=== PATIENT | male | born 1960 | race Caucasian/White ===

== ENCOUNTER 2019-11-29 12:02 | Inpatient (IN) | payer OTHER ==
[~2019-11-29] VITALS: Ht 198.1 cm; Wt 138.0 kg
--- NOTE | 2019-11-29 12:10 | NUR ---
Patient BIB rescue ambulance from dialysis center for c/o of chills and SOB x 3 weeks. Patient placed in Bed 1B, attached to bedside monitor. Patient noted to have goosebumps on his skin and c/o of shortness of breath. Pt states he smoked a pack of cigarettes within one week and developed a cough. Seen and examined by Dr. Garcia.
[2019-11-29 12:57] LABS: BASOPHILS % (AUTO) 0.4 % (0.0-2.0); EOSINOPHILS # (AUTO) 0.2 K/uL (0.0-0.7); EOSINOPHILS % (AUTO) 1.8 % (0.0-7.0); HEMATOCRIT 27.2 % (36.7-47.1); HEMOGLOBIN 9.5 g/dL (12.5-16.3); LYMPHOCYTES # (AUTO) 1.5 K/uL (20.0-40.0); LYMPHOCYTES % (AUTO) 13.7 % (20.5-51.5); MEAN CORPUSCULAR HEMOGLOBIN 31.7 uug (23.8-33.4); MEAN CORPUSCULAR HGB CONC 35 g/dL (32.5-36.3); MEAN CORPUSCULAR VOLUME 90.3 fL (73.0-96.2); MONOCYTES # (AUTO) 0.5 K/uL (2.0-10.0); MONOCYTES % (AUTO) 4.7 % (0.0-11.0); NEUTROPHILS # (AUTO) 8.5 K/uL (1.8-8.9); NEUTROPHILS % (AUTO) 79.4 % (38.5-71.5); PLATELET COUNT (AUTO) 187 K/uL (152-348); RED BLOOD CELL COUNT(AUTO) 3.01 MIL/uL (4.06-5.63); WHITE BLOOD COUNT (AUTO) 10.7 K/uL (3.6-10.2)
[2019-11-29 13:13] LABS: BILIRUBIN,DIRECT 0.1 mg/dL (0.0-0.2); BILIRUBIN,TOTAL 0.7 mg/dL (0.2-1.0); CREATININE 5.3 mg/dL (0.6-1.3); TOTAL PROTEIN, SERUM 8.3 g/dL (6.4-8.2)
[2019-11-29] MEDS ORDERED: GABA-532 PO (13:19)
[2019-11-29] MEDS ORDERED: METO50TA16 PO (13:19)
[2019-11-29] MEDS ORDERED: ATOR40TA PO (13:19)
[2019-11-29] MEDS ORDERED: LOSA50TA39 PO (13:19)
[2019-11-29] MEDS ORDERED: INSU100V39 SQ (13:19)
[2019-11-29] MEDS ORDERED: INSU100V7 SQ (13:19)
[2019-11-29] MEDS ORDERED: APIX5TAB PO (13:19)
[2019-11-29] MEDS ORDERED: CALC667C6 PO (13:19)
[2019-11-29] MEDS ORDERED: ISOS60TA4 PO (13:19)
[2019-11-29] MEDS ORDERED: DOCU-141 PO (13:19)
[2019-11-29] MEDS ORDERED: hydrALAZINE HCL 25 MG TABLET ONE (13:44)
[2019-11-29] MEDS ORDERED: hydrALAZINE HCL 25 MG TABLET PO ONE (13:45)
--- NOTE | 2019-11-29 15:07 | NUR ---
Spoke with Sydnie in 3rd floor states they do not have a room for PUI
--- NOTE | 2019-11-29 17:40 | NUR ---
attempted to give report to floor. Per Kamron, nurse madison is with a patient and she will call ER for report.
--- NOTE | 2019-11-29 18:21 | NUR ---
SBAR report given to Seun WINTER
--- NOTE | 2019-11-29 19:00 | NUR ---
RECEIVED PT AWAKE, ALERT AND ORIENTEDX4. UNDER THE CARE OF DR. LUNDY. DX;CHF/ESRD PT IN NO ACUTE DISTRESS. IV INTACT. ADMISSION PROCESS AND CARE PLAN INITIATED. RESIDENTIAL ASSESSMENT DONE. PT OBSERVED TO HAVE A DRESSING ON HIS RIGHT AND LEFT FEET. LEFT ARM HAS AV SHUNT. SAFETY AND COMFORT PROVIDED. WILL CONTINUE TO MONITOR.
[2019-11-29 19:08] VITALS: BP 156/78
[2019-11-29] MEDS ORDERED: DEXTROSE 50% 50 ML DISP.SYRIN IV PRN (19:30)
[2019-11-29] MEDS ORDERED: ONDANSETRON 4 MG/2 ML VIAL IV PRN (19:30)
[2019-11-29] MEDS ORDERED: ACETAMINOPHEN 325 MG TABLET PO PRN (19:30)
[2019-11-29] MEDS ORDERED: MORPHINE SULFATE 2 MG/1 ML DISP.SYRIN IV PRN (19:30)
[2019-11-29 20:06] VITALS: BP 150/72
[2019-11-29] MEDS: GABAPENTIN 300 MG CAPSULE PO SCH (20:17)
[2019-11-29] MEDS: ATORVASTATIN 40 MG TABLET PO SCH (20:17)
[2019-11-29] MEDS: LOSARTAN POTASSIUM 50 MG TABLET PO SCH (20:18)
[2019-11-29] MEDS: BLOOD SUGAR DIAGNOSTIC 1 EACH STRIP VI SCH (21:35)
[2019-11-29] MEDS: INSULIN REGULAR, HUMAN 300 UNIT/3 ML VIAL SQ PRN (21:36)
[2019-11-29] MEDS: INSULIN GLARGINE,HUM 300 UNITS/3 ML CARTRIDGE SQ SCH (21:37)
[2019-11-30 00:22] VITALS: BP 159/88
[2019-11-30 04:00] VITALS: BP 158/78
[2019-11-30] MEDS: PANTOPRAZOLE SODIUM 40 MG TABLET.DR PO SCH (06:17)
--- NOTE | 2019-11-30 06:18 | NUR ---
PT SLEPT INTERMITTENTLY. PT IN NO ACUTE DISTRESS. IV INTACT. PRESCRIBED MEDICATION GIVEN AND PT TOLERATED IT WELL. DRESSING CHANGED FOR HIS BILATERAL FOOT. SAFETY AND COMFORT PROVIDED. ALL NEEDS ARE MET. WILL ENDORSE TO INCOMING NURSE FOR CONTINUITY OF CARE.
[2019-11-30] MEDS: BLOOD SUGAR DIAGNOSTIC 1 EACH STRIP VI SCH ×4 (06:39→21:36)
[2019-11-30 07:13] LABS: BASOPHILS % (AUTO) 0.7 % (0.0-2.0); EOSINOPHILS # (AUTO) 0.3 K/uL (0.0-0.7); EOSINOPHILS % (AUTO) 4.6 % (0.0-7.0); HEMATOCRIT 24.1 % (36.7-47.1); HEMOGLOBIN 8.3 g/dL (12.5-16.3); LYMPHOCYTES # (AUTO) 1.4 K/uL (20.0-40.0); LYMPHOCYTES % (AUTO) 20.6 % (20.5-51.5); MEAN CORPUSCULAR HEMOGLOBIN 31.2 uug (23.8-33.4); MEAN CORPUSCULAR HGB CONC 35 g/dL (32.5-36.3); MEAN CORPUSCULAR VOLUME 90.6 fL (73.0-96.2); MONOCYTES # (AUTO) 0.4 K/uL (2.0-10.0); MONOCYTES % (AUTO) 6.1 % (0.0-11.0); NEUTROPHILS # (AUTO) 4.7 K/uL (1.8-8.9); PLATELET COUNT (AUTO) 156 K/uL (152-348); RED BLOOD CELL COUNT(AUTO) 2.66 MIL/uL (4.06-5.63); WHITE BLOOD COUNT (AUTO) 6.9 K/uL (3.6-10.2)
[2019-11-30 07:23] LABS: BILIRUBIN,TOTAL 0.6 mg/dL (0.2-1.0); CREATININE 7.3 mg/dL (0.6-1.3); MAGNESIUM 2.1 mg/dL (1.8-2.4); PHOSPHOROUS 5.2 mg/dL (2.5-4.9); POTASSIUM 4.5 mmol/L (3.5-5.1); TOTAL PROTEIN, SERUM 7.3 g/dL (6.4-8.2)
[2019-11-30 07:38] LABS: THYROID STIMULATING HORMONE 1.545 mIU/mL (0.358-3.740)
[2019-11-30] MEDS: DOCUSATE SODIUM 100 MG CAPSULE PO SCH (08:25)
[2019-11-30] MEDS: ISOSORBIDE MONONITRATE 60 MG TAB.SR.24H PO SCH (08:25)
[2019-11-30] MEDS: LOSARTAN POTASSIUM 50 MG TABLET PO SCH ×2 (08:25→21:30)
[2019-11-30] MEDS: CALCIUM ACETATE 667 MG CAPSULE PO SCH ×3 (08:25→16:35)
[2019-11-30] MEDS: METOPROLOL TARTRATE 50 MG TABLET PO SCH ×2 (08:26→16:35)
[2019-11-30 09:33] LABS: *BILIRUBIN,URIN NEGATIVE (NEGATIVE); *CLARITY,URINE SLIGHTLY CLOUDY (CLEAR); *COLOR,URINE YELLOW (YELLOW); *KETONES,URINE NEGATIVE (NEGATIVE); *UROBILINOGEN,URINE 0.2 E.U./dl (NORMAL); LEUKOCYTE ESTERASE ,URINE TRACE (NEGATIVE); NITRITE, URINE NEGATIVE (NEGATIVE); PH,URINE 8.5 (5.0-8.0); UGLUCOSE TRACE (NEGATIVE)
[2019-11-30 09:48] LABS: *BLOOD, URINE TRACE (NEGATIVE)
[2019-11-30 10:39] VITALS: BP 175/85
[2019-11-30] MEDS: INSULIN REGULAR, HUMAN 300 UNIT/3 ML VIAL SQ PRN ×3 (11:21→21:38)
--- NOTE | 2019-11-30 12:08 | NUR ---
WOUND CARE CONSULT: REVIEWED CHART, NURSING DOCUMENTATION AND PHOTOS WHICH INDICATE BILATERAL FOOT WOUNDS, PRESENT ON ADMISSION. RECOMMEND DPM CONSULT. DR RAZA NOTIFIED OF CONSULT REQUEST. CURRENT EDGARDO SCORE IS 21. MD IN AGREEMENT WITH PLAN OF CARE.
--- NOTE | 2019-11-30 12:52 | NUR ---
Received patient awake in bed in stable condition. no SOB noted. Cough noted during rounds. no complaint of pain/discomfort noted. Patient seen by wound nurse with order of DPM consult for right heel and left big toe wound. Continue skin care provided. Patient continue blood sugar monitoring with sliding scale protocol. Patient done with scheduled dialysis with 3600 liters consume. not in distress. will continue monitor
[2019-11-30 15:49] VITALS: BP 151/71
[2019-11-30] MEDS: SODIUM HYPOCHLORITE 0.125% (QUARTER STRENGTH) 473 ML BOTTLE TP SCH (17:26)
[2019-11-30] MEDS: KETOCONAZOLE 2% CREAM 30 GM TUBE TP SCH (17:27)
[2019-11-30] MEDS: SILVER SULFADIAZINE 1% CREAM 50 GM TP SCH (17:27)
[2019-11-30 18:10] LABS: BACTERIA,URINE FEW /HPF (NONE SEEN); RBC,URINE 0-3 /HPF (0-3); SQUAMOUS EPITHELIAL CELL,UR FEW /HPF (NONE SEEN); WBC,URINE 0-3 /HPF (0-3)
--- NOTE | 2019-11-30 18:11 | NUR ---
Patient urine sent to lab, awaiting for culture result. Patient seen and examined by Cartridge Gauger with order cleanse with daikin and applied silvadene to left big toe and right foot heel, covered with gauze and surgical tape. Awaiting for covid test result. will continue monitor
[2019-11-30] MEDS ORDERED: VANCOMYCIN IV 1,250 MG in IV DEXTROSE 5% 250 ML IV ONE (20:00)
[2019-11-30] MEDS ORDERED: VANCOMYCIN IV 1,000 MG in IV DEXTROSE 5% 250 ML IV ONE (20:00)
[2019-11-30 21:28] VITALS: BP 170/82
[2019-11-30] MEDS: ATORVASTATIN 40 MG TABLET PO SCH (21:30)
[2019-11-30] MEDS: GABAPENTIN 300 MG CAPSULE PO SCH (21:30)
[2019-11-30] MEDS: hydrALAZINE HCL 25 MG TABLET PO PRN (21:33)
[2019-11-30] MEDS: INSULIN GLARGINE,HUM 300 UNITS/3 ML CARTRIDGE SQ SCH (21:37)
--- NOTE | 2019-11-30 22:00 | NUR ---
Received patient awake in bed in stable condition talking on the phone. No distress noted, no SOB noted Denies any pain at this time. Accucheck 156 covered with sliding scale. All due medication administered. Eleevated BP 170/82, administered PRN hydralazine. will continue monitor
--- NOTE | 2019-11-30 22:30 | NUR ---
IV RAC20G occluded, removed and started IV R forarm 22G, intact. One time order to run vanco, administered no adverse affects noted.
[2019-12-01] VITALS (8 sets, daily range): BP systolic 147–181; BP diastolic 70–89
[2019-12-01] MEDS ORDERED: CLONIDINE HCL 0.1 MG TABLET PO ONE (00:30)
--- NOTE | 2019-12-01 00:30 | NUR ---
BP 181/83 asymptomatic. callisthenics instructor Doctor Erica Hancock made aware, new order for clonidine 0.1mmgPO x1, administered, will continue to monitor.
--- NOTE | 2019-12-01 02:18 | NUR ---
BP remains elevated 177/81, asymptomatic Addendum: 12/01/19 at 0220 by JOSEFINA ROSE RN RN [id number]
[2019-12-01] MEDS: PANTOPRAZOLE SODIUM 40 MG TABLET.DR PO SCH (06:49)
[2019-12-01] MEDS: BLOOD SUGAR DIAGNOSTIC 1 EACH STRIP VI SCH ×4 (06:51→20:25)
[2019-12-01 06:57] LABS: BASOPHILS % (AUTO) 0.6 % (0.0-2.0); EOSINOPHILS # (AUTO) 0.3 K/uL (0.0-0.7); EOSINOPHILS % (AUTO) 5.8 % (0.0-7.0); HEMATOCRIT 23.3 % (36.7-47.1); HEMOGLOBIN 8.1 g/dL (12.5-16.3); LYMPHOCYTES # (AUTO) 1.4 K/uL (20.0-40.0); LYMPHOCYTES % (AUTO) 22.6 % (20.5-51.5); MEAN CORPUSCULAR HEMOGLOBIN 31.4 uug (23.8-33.4); MEAN CORPUSCULAR HGB CONC 35 g/dL (32.5-36.3); MEAN CORPUSCULAR VOLUME 90.8 fL (73.0-96.2); MONOCYTES # (AUTO) 0.5 K/uL (2.0-10.0); MONOCYTES % (AUTO) 8.4 % (0.0-11.0); NEUTROPHILS # (AUTO) 3.8 K/uL (1.8-8.9); NEUTROPHILS % (AUTO) 62.6 % (38.5-71.5); PLATELET COUNT (AUTO) 137 K/uL (152-348); RED BLOOD CELL COUNT(AUTO) 2.57 MIL/uL (4.06-5.63)
[2019-12-01 07:07] LABS: BILIRUBIN,TOTAL 0.4 mg/dL (0.2-1.0); CREATININE 7.2 mg/dL (0.6-1.3); MAGNESIUM 1.9 mg/dL (1.8-2.4); PHOSPHOROUS 5.8 mg/dL (2.5-4.9); POTASSIUM 4.7 mmol/L (3.5-5.1); TOTAL PROTEIN, SERUM 7.2 g/dL (6.4-8.2); VANCOMYCIN,RANDOM 14.8 ug/mL (18.0-26.0)
[2019-12-01] MEDS: DOCUSATE SODIUM 100 MG CAPSULE PO SCH (08:19)
[2019-12-01] MEDS: CALCIUM ACETATE 667 MG CAPSULE PO SCH ×3 (08:19→16:44)
[2019-12-01] MEDS: ISOSORBIDE MONONITRATE 60 MG TAB.SR.24H PO SCH (08:24)
[2019-12-01] MEDS: LOSARTAN POTASSIUM 50 MG TABLET PO SCH ×2 (08:24→20:27)
[2019-12-01] MEDS: METOPROLOL TARTRATE 50 MG TABLET PO SCH ×2 (08:25→18:15)
[2019-12-01] MEDS: hydrALAZINE HCL 25 MG TABLET PO PRN (08:33)
[2019-12-01] MEDS: SILVER SULFADIAZINE 1% CREAM 50 GM TP SCH ×2 (09:06→16:38)
[2019-12-01] MEDS: SODIUM HYPOCHLORITE 0.125% (QUARTER STRENGTH) 473 ML BOTTLE TP SCH ×2 (09:06→16:38)
[2019-12-01] MEDS: KETOCONAZOLE 2% CREAM 30 GM TUBE TP SCH ×2 (09:06→16:39)
[2019-12-01] MEDS ORDERED: AMLODIPINE 10 MG TABLET PO SCH (09:45)
[2019-12-01] MEDS: INSULIN REGULAR, HUMAN 300 UNIT/3 ML VIAL SQ PRN ×3 (12:12→20:33)
[2019-12-01] MEDS ORDERED: FURO80TA87 PO (12:38)
[2019-12-01] MEDS ORDERED: ISOS120T13 PO (12:38)
[2019-12-01] MEDS ORDERED: HYDR100T27 PO (12:38)
[2019-12-01] MEDS ORDERED: NIFE-34 PO (12:38)
[2019-12-01] MEDS: NIFEdipine XL 60 MG TABSR PO SCH (13:00)
[2019-12-01] MEDS: hydrALAZINE HCL 50 MG TABLET PO SCH ×2 (16:33→18:14)
[2019-12-01] MEDS: APIXABAN 5 MG TABLET PO SCH (16:36)
[2019-12-01] MEDS ORDERED: VANCOMYCIN IV 1,000 MG in IV DEXTROSE 5% 250 ML IV ONE (17:00)
[2019-12-01] MEDS ORDERED: VANCOMYCIN IV 500 MG in IV DEXTROSE 5% 100 ML IV PRN (19:30)
--- NOTE | 2019-12-01 19:35 | NUR ---
Pt in bed, awake. Denies any acute distress or pain at this time. V/S stable on room air. Afebrile. Pt had hemodialysis today with 3,000ml output. RFA 22G IV is intact. Safety measures in place. Call light within reach. Will continue with the plan of care.
[2019-12-01] MEDS: ATORVASTATIN 40 MG TABLET PO SCH (20:27)
[2019-12-01] MEDS: GABAPENTIN 300 MG CAPSULE PO SCH (20:27)
[2019-12-01] MEDS ORDERED: INSULIN GLARGINE,HUM 300 UNITS/3 ML CARTRIDGE SQ SCH (21:00)
[2019-12-02] VITALS: BP 164/77
[2019-12-02] MEDS: hydrALAZINE HCL 25 MG TABLET PO PRN (00:42)
[2019-12-02 05:16] VITALS: BP 160/80
[2019-12-02] MEDS: PANTOPRAZOLE SODIUM 40 MG TABLET.DR PO SCH (06:29)
[2019-12-02] MEDS: BLOOD SUGAR DIAGNOSTIC 1 EACH STRIP VI SCH ×2 (06:30→10:37)
[2019-12-02 06:34] LABS: CREATININE 6.9 mg/dL (0.6-1.3); POTASSIUM 4.6 mmol/L (3.5-5.1)
--- NOTE | 2019-12-02 06:48 | NUR ---
Pt slept intermittently through the night. Pt awake and denies any acute distress or pain at this time. BP was 164/77, PRN Hydralazine was given. NSR 65 on tele monitor. Comfort care and needs attended. Safety measures in place. Call light within reach. Will endorse to the oncoming nurse accordingly.
[2019-12-02] MEDS: INSULIN REGULAR, HUMAN 300 UNIT/3 ML VIAL SQ PRN ×2 (07:20→11:50)
[2019-12-02] MEDS: METOPROLOL TARTRATE 50 MG TABLET PO SCH (07:57)
[2019-12-02] MEDS: DOCUSATE SODIUM 100 MG CAPSULE PO SCH (07:57)
[2019-12-02] MEDS: LOSARTAN POTASSIUM 50 MG TABLET PO SCH (07:58)
[2019-12-02] MEDS: CALCIUM ACETATE 667 MG CAPSULE PO SCH ×2 (07:58→11:49)
[2019-12-02] MEDS: hydrALAZINE HCL 50 MG TABLET PO SCH ×2 (07:58→13:12)
[2019-12-02] MEDS: ISOSORBIDE MONONITRATE 60 MG TAB.SR.24H PO SCH (07:58)
[2019-12-02] MEDS: APIXABAN 5 MG TABLET PO SCH (07:59)
[2019-12-02] MEDS: NIFEdipine XL 60 MG TABSR PO SCH (07:59)
[2019-12-02] MEDS: SODIUM HYPOCHLORITE 0.125% (QUARTER STRENGTH) 473 ML BOTTLE TP SCH (08:26)
[2019-12-02] MEDS: KETOCONAZOLE 2% CREAM 30 GM TUBE TP SCH (08:27)
[2019-12-02] MEDS: SILVER SULFADIAZINE 1% CREAM 50 GM TP SCH (08:27)
[2019-12-02 08:53] VITALS: BP 143/72
[2019-12-02 13:16] VITALS: BP 162/76
[2019-12-02 15:35] VITALS: BP 163/76
[2019-12-02] MEDS ORDERED: DOXY100C2 PO (15:36)
[2019-12-02] MEDS ORDERED: ATOR20TA PO (15:36)
[2019-12-02] MEDS ORDERED: Isosorbide Mononitrate PO (15:36)
[2019-12-02] MEDS ORDERED: SODI473S8 TP (15:36)
[2019-12-02] MEDS ORDERED: Silver Sulfadiazine 1% Cream TP (15:36)
[2019-12-02] MEDS ORDERED: Insulin Glargine,Hum SQ (15:36)
[2019-12-02] MEDS ORDERED: KETO15CR2 TP (15:36)
--- NOTE | 2019-12-02 16:07 | NUR ---
pt refused to take his wound picture made aware
--- NOTE | 2019-12-02 16:08 | NUR ---
dc orders received noted and carried out,dc heplock per md orders,dc instruction and education given to the pt,pt said he will follow up with his pcp in one week.pt left the facility via private car in stable condition
== END 2019-12-02 16:00 | disposition home or self-care (01) | DRG 291 ==
LOC: ER 12:02 → TELE3 18:28
PROVIDERS: ADMIT Internal Medicine; ATTEND Internal Medicine
PROC: 5A1D70Z Performance of Urinary Filtration, Intermittent, Less than 6 Hours Per Day (ICD-10-PCS; principal; 2019-11-30)
DX: I13.2 Hypertensive heart and chronic kidney disease with heart failure and with stage 5 chronic kidney disease, or end stage renal disease (principal); N18.6 End stage renal disease; I50.33 Acute on chronic diastolic (congestive) heart failure; E11.22 Type 2 diabetes mellitus with diabetic chronic kidney disease; E11.65 Type 2 diabetes mellitus with hyperglycemia; Z90.49 Acquired absence of other specified parts of digestive tract; F17.210 Nicotine dependence, cigarettes, uncomplicated; B36.9 Superficial mycosis, unspecified; Z99.2 Dependence on renal dialysis; I25.10 Atherosclerotic heart disease of native coronary artery without angina pectoris; I25.2 Old myocardial infarction; E66.9 Obesity, unspecified; Z68.35 Body mass index [BMI] 35.0-35.9, adult; Z79.4 Long term (current) use of insulin; N25.0 Renal osteodystrophy; D63.1 Anemia in chronic kidney disease; E11.621 Type 2 diabetes mellitus with foot ulcer; L97.519 Non-pressure chronic ulcer of other part of right foot with unspecified severity; L97.529 Non-pressure chronic ulcer of other part of left foot with unspecified severity; I34.0 Nonrheumatic mitral (valve) insufficiency; D72.829 Elevated white blood cell count, unspecified; I48.0 Paroxysmal atrial fibrillation; L90.9 Atrophic disorder of skin, unspecified; Z79.01 Long term (current) use of anticoagulants
CPT/HCPCS: 36415; 70030-TC; 71045; 83605; 83735; 84100; 84443; 85025; 85730; 86704; 86803; 87040; 87086; 87400; 93005; 93307; 94640; A4663; G0378; J1815; J3370; J7040; J7050; J7060; U0003-CS